=== PATIENT | male | born 1960 | race Caucasian/White ===

== ENCOUNTER 2017-02-10 07:51 | Day surgery (SDC) | payer BC ==
[~2017-02-10] VITALS: Ht 182.9 cm; Wt 85.4 kg
[~2017-02-10 07:51] MED LIST: ASPI-664 PO; PANT20TA2
[2017-02-10 08:58] VITALS: Ht 182.9 cm; Wt 85.4 kg
[2017-02-10 09:32] VITALS: BP 159/73; PULSE 55; RESP 12
[2017-02-10 09:41] VITALS: BP 159/73; PULSE 55; RESP 16
[2017-02-10] MEDS ORDERED: MIDAZOLAM 1 MG/ML 2 ML INJ ONE ×3 (10:33)
[2017-02-10] MEDS ORDERED: FENTAnyl 50 MCG/ML VIAL ONE (10:33)
[2017-02-10 10:47] VITALS: BP 152/89; PULSE 52; RESP 18
--- NOTE | 2017-03-16 05:36 | GILP ---
DATE OF PROCEDURE: 02/25/2017 PREOPERATIVE DIAGNOSES: 1. Abdominal pain. 2. Chronic heartburn. 3. Change in the bowel habits. POSTOPERATIVE DIAGNOSES: 1. Hiatal hernia. 2. Gastroesophageal reflux disease. 3. Gastritis with erosions. 4. Gastric mucosal biopsies were taken for Helicobacter pylori test. 5. Colonoscopy all the way to the cecum. 6. Small sigmoid colon polyp was removed using the biopsy forceps. 7. Internal hemorrhoids. PROCEDURES PERFORMED: 1. Esophagogastroduodenoscopy and biopsy. 2. Colonoscopy and biopsy. SURGEON: Giovana Sheppard MD. INDICATION FOR PROCEDURE: Mr. Baldemar Barnes is a 56-year-old male patient who had upper abdominal pain and chronic heartburn not responding to therapy. The patient also had change in the bowel habits. The patient was scheduled for endoscopy and colonoscopy for further evaluation. The procedures and possible complications were well explained to the patient. He understood and consented to the procedure. DESCRIPTION OF PROCEDURE: Under the influence of fentanyl and Versed the gastroscope was carefully introduced into the esophagus and under direct vision it was advanced to the stomach, into the pylorus, to the duodenal bulb and descending duodenum. Findings esophagus, the patient had a small hiatal hernia and gastroesophageal reflux disease. Stomach, he had gastritis with erosions. Gastric mucosal biopsies were taken for Helicobacter pylori test. The duodenum was normal. The colonoscope was carefully introduced in the rectum. Under direct vision it was advanced all the way to the cecum. Findings, the patient had a small sigmoid colon polyp and it was removed using the biopsy forceps. He was noted to have internal hemorrhoids. He tolerated the procedures very well and there were no complications from the procedures. At the end of procedures he was awake with stable vital signs and he was discharged home in the care of his family. IMPRESSION: 1. Small hiatal hernia. 2. Gastroesophageal reflux disease. 3. Gastritis with erosions. 4. Gastric mucosal biopsies were taken for Helicobacter pylori test. 5. Colonoscopy all the way to the cecum. 6. Small sigmoid colon polyp was removed using the biopsy forceps. 7. Internal hemorrhoids. PLAN: 1. Continue pantoprazole. 2. Add Zantac 300 mg p.o. h.s. 3. Await histopathology reports. 4. Next screening colonoscopy in 10 years. Dictated By: MD JULIOCESAR Adams/vonnie/michelle /Document#: [id number] CC: Giovana Sheppard MD;*[facility]*
== END 2017-02-10 14:51 | disposition home or self-care (01) ==
LOC: GIL 07:51
PROVIDERS: ATTEND Internal Medicine Gastroenterology
DX: Z12.11 Encounter for screening for malignant neoplasm of colon (principal); K44.9 Diaphragmatic hernia without obstruction or gangrene; K21.9 Gastro-esophageal reflux disease without esophagitis; K29.60 Other gastritis without bleeding; D12.5 Benign neoplasm of sigmoid colon
CPT/HCPCS: 43239; 45380; J2250; J3010

== ENCOUNTER → 2017-06-02 | Outpatient (CLI) | payer BC ==
[~2017-06-02] MED LIST changes: -ASPI-664 PO
[2017-06-02 08:56] LABS: ADD UMIC NO; UR ASCORBIC ACID NEGATIVE (NEGATIVE); UR BILIRUBIN (Dip) NEGATIVE (NEGATIVE); UR BLOOD (Dip) NEGATIVE (NEGATIVE); UR CLARITY CLEAR (CLEAR); UR COLOR YELLOW (YELLOW); UR GLUCOSE (Dip) NEGATIVE (NEGATIVE); UR KETONES (Dip) NEGATIVE (NEGATIVE); UR LEUKOCYTE ESTERASE (Dip) NEGATIVE Leu/ul (NEGATIVE); UR NITRITE (Dip) NEGATIVE (NEGATIVE); UR SPECIFIC GRAVITY (Dip) 1.023 (1.003-1.030); UR TOTAL PROTEIN (Dip) NEGATIVE (NEGATIVE); UR UROBILINOGEN (Dip) NEGATIVE (NEGATIVE)
[2017-06-02 09:06] LABS: BASOPHILS % 0.2 % (0.0-2.0); EOSINOPHILS # 0.1 10^3/ul (0.0-0.5); HEMATOCRIT 45.1 % (42.0-52.0); HEMOGLOBIN 14.4 g/dl (14.0-18.0); LYMPHOCYTES # 1.6 10^3/ul (0.8-2.9); LYMPHOCYTES % 31.7 % (15.0-51.0); MEAN CORPUSCULAR HEMOGLOBIN 29.6 pg (29.0-33.0); MEAN CORPUSCULAR HGB CONC 31.9 g/dl (32.0-37.0); MEAN CORPUSCULAR VOLUME 92.6 fl (82.0-101.0); MEAN PLATELET VOLUME 9.8 fl (7.4-10.4); MONOCYTE # 0.3 10^3/ul (0.3-0.9); MONOCYTES % 6.8 % (0.0-11.0); NEUTROPHILS % 59.1 % (39.0-77.0); PLATELET COUNT 223 10^3/UL (140-415); RED BLOOD COUNT 4.87 10^6/ul (4.70-6.10); RED CELL DISTRIBUTION WIDTH 13.2 % (11.5-14.5)
[2017-06-02 09:19] LABS: ALBUMIN 4.3 g/dl (3.3-4.9); ALBUMIN/GLOBULIN RATIO 1.3; BILIRUBIN,INDIRECT 0.6 mg/dl (0-1.1); BILIRUBIN,TOTAL 0.6 mg/dl (0.2-1.3); CALCIUM 9.3 mg/dl (8.4-10.2); CHOL/HDL RATIO 3.3 RATIO; CREATININE 1.07 mg/dl (0.61-1.24); POTASSIUM 4.4 mmol/L (3.5-5.1); TOTAL PROTEIN 7.6 g/dl (6.1-8.1)
[2017-06-02 09:56] LABS: PROSTATE SPECIFIC ANTIGEN 0.8 ng/ml (0.0-4.0); THYROID STIMULATING HORMONE 1.25 MIU/L (0.465-4.680)
== END | disposition home or self-care (01) ==
LOC: LAB 08:05
PROVIDERS: ATTEND Internal Medicine
DX: I10 Essential (primary) hypertension (principal); R73.9 Hyperglycemia, unspecified; Z00.01 Encounter for general adult medical examination with abnormal findings; C62.90 Malignant neoplasm of unspecified testis, unspecified whether descended or undescended; Z12.5 Encounter for screening for malignant neoplasm of prostate
CPT/HCPCS: 80053; 80061; 81003; 82652; 83036; 84153; 84154; 84443; 85025

== ENCOUNTER → 2017-09-05 | Outpatient (CLI) | END | disposition home or self-care (01) ==

== ENCOUNTER → 2017-12-08 | Outpatient (CLI) | END | disposition home or self-care (01) ==

== ENCOUNTER → 2018-06-13 | Outpatient (CLI) | END | disposition home or self-care (01) ==

== ENCOUNTER → 2018-11-30 | Outpatient (CLI) | payer BC | END | disposition home or self-care (01) | LOC: LAB 08:41 | PROVIDERS: ATTEND Internal Medicine | DX: R73.03 Prediabetes (principal) | CPT/HCPCS: 83036 ==